=== PATIENT | male | born 1940 | race African-American/Black ===

== ENCOUNTER 2016-06-23 00:26 | Emergency (ER) | payer OTHER ==
[~2016-06-23] VITALS: Ht 195.6 cm; Wt 118.0 kg
[~2016-06-23 00:26] MED LIST: ADVA100A; ADVA100A INH; ALBU0.086 INH; ASPI81TA82 PO; BP MEDICATION PO; GLUCTAB PO; NITR0.4S SL; PRED5TAB PO; THEO300T31 PO
[2016-06-23 00:28] VITALS: BP 153/72; PULSE 86; RESP 16; TEMP 98.2; O2SAT 95
[2016-06-23 01:12] VITALS: BP 153/72; PULSE 86; RESP 16; TEMP 98.2; O2SAT 95
[2016-06-23 04:43] VITALS: BP 136/78; PULSE 62; RESP 16; O2SAT 95
[2016-06-23] MEDS ORDERED: SODIUM CHLORIDE 0.9% FLUSH 5 ML FLUSH IVF PRN (04:45)
[2016-06-23 05:03] LABS: AUTOMATED NEUTROPHIL # 3.5 TH/MM3 (1.8-7.7); BASOPHIL % 0.5 % (0.0-2.0); EOSINOPHIL # 0.3 TH/MM3 (0-0.4); EOSINOPHIL % 4.9 % (0.0-4.0); HEMO FLAGS DIFF FINAL; LYMPH % 31.7 % (9.0-44.0); LYMPHOCYTE # 2.1 TH/MM3 (1.0-4.8); MEAN CELL VOLUME 95.8 FL (80.0-100.0); MEAN CORPUSCULAR HEMOGLOBIN 33.1 PG (27.0-34.0); MEAN CORPUSCULAR HGB CONC 34.5 % (32.0-36.0); MONO % 9.7 % (0.0-8.0); NEUT % 53.2 % (16.0-70.0); PLATELET COUNT 223 TH/MM3 (150-450); RED CELL DISTRIBUTION WIDTH 13.6 % (11.6-17.2); WHITE BLOOD COUNT 6.6 TH/MM3 (4.0-11.0)
[2016-06-23 05:14] LABS: APTT (PATIENT) 25.3 SEC (24.3-30.1); PROTHROMBIN TIME - PATIENT 11.1 SEC (9.8-11.6)
[2016-06-23] MEDS ORDERED: PANTOPRAZOLE SODIUM 40 MG VIAL IV PUSH ONE (05:15)
[2016-06-23 05:19] LABS: ALT (GPT) 22 U/L (12-78); ANION GAP 8 MEQ/L (5-15); AST (GOT) 17 U/L (15-37); BICARBONATE 29.4 MEQ/L (21.0-32.0); BLOOD UREA NITROGEN 22 MG/DL (7-18); CHLORIDE 104 MEQ/L (98-107); GLOMERULAR FILTRATION RATE 105 ML/MIN (>89); POTASSIUM 4.4 MEQ/L (3.5-5.1); SODIUM (NA) 141 MEQ/L (136-145)
[2016-06-23 05:22] LABS: ALKALINE PHOSPHATASE 58 U/L (45-117); TOTAL BILIRUBIN ADULT 0.5 MG/DL (0.2-1.0)
[2016-06-23 05:50] LABS: BLOOD, URINE NEG (NEG); COMMENT (UR) CULT NOT INDICATED; CULTURE IF INDICATED CULT NOT INDICATED; GLUCOSE,URINE NEG (NEG); KETONE, URINE NEG (NEG); MUCUS URINE FEW /lpf (OCC); NITRITE,URINE NEG (NEG); PH, URINE 5.5 (5.0-8.5); URINE COLOR YELLOW (YELLW/STRAW)
--- NOTE | 2016-06-23 05:51 | RADRPT ---
EXAM DATE/TIME: 06/23/2016 05:06 [facility] COMPARISON: CHEST SINGLE AP, March 07, 2013, 2:28. INDICATIONS : Abdominal pain. MEDICAL HISTORY : None. SURGICAL HISTORY : None. ENCOUNTER: Initial ACUITY: 1 day PAIN SCORE: 2/10 LOCATION: Bilateral abdomen FINDINGS: A single view of the chest demonstrates the lungs to be symmetrically aerated without evidence of mas s, infiltrate or effusion. The cardiomediastinal contours are unremarkable. Osseous structures are intact. CONCLUSION: No acute disease. Jason Sanchez MD on June 23, 2016 at 5:50 Board Certified Radiologist. This report was verified electronically.
--- NOTE | 2016-06-23 05:55 | RADRPT ---
EXAM DATE/TIME: 06/23/2016 05:27 [facility] COMPARISON: CT BRAIN W/O CONTRAST, March 12, 2011, 12:32. INDICATIONS : Cephalgia. RADIATION DOSE: 69.15 CTDIvol (mGy) MEDICAL HISTORY : Hypertension. diabetes SURGICAL HISTORY : None. ENCOUNTER: Initial ACUITY: 1 day PAIN SCALE: 4/10 LOCATION: cranial TECHNIQUE: Multiple contiguous axial images were obtained of the head. Using automated exposure control and adj ustment of the mA and/or kV according to patient size, radiation dose was kept as low as reasonably a chievable to obtain optimal diagnostic quality images. FINDINGS: There is stable degree of atrophy greatest in the bilateral parietal regions. There is no evidence of acute infarct, intracranial hemorrhage, or mass. No fractures. CONCLUSION: No significant change has occurred. Jason Sanchez MD on June 23, 2016 at 5:53 Board Certified Radiologist. This report was verified electronically.
[2016-06-23] MEDS ORDERED: KETOROLAC TROMETHAMINE 30 MG/ML (IVP) VIAL IV PUSH ONE (06:00)
--- NOTE | 2016-06-23 06:17 | PD ---
HPI Chief Complaint: Abdominal Pain Time Seen by Provider: 04:29 Travel History International Travel<30 days: No Contact w/Intl Traveler<30days: No Traveled to known affect area: No History of Present Illness HPI The patient is a 76 year old male who presents to the [facility] emergency department with a history of Wednesday beginning to have a headache over his forehead that seems to be coming and going. He reports that is a pressure sensation. He denies having any nasal congestion or discharge. He denies having any sore throat. He denies having any cough or other congestion. The patient reports that he believes that he bumped his head on a cabinet prior to this beginning. The patient additionally reports that since 4:30 AM on Wednesday he has had a left upper quadrant abdominal pain that is been coming and going. He reports that this is an aching sensation. He reports that injury over lead did initially. The patient denies any recent fevers, neck pain, chest pain, shortness of breath, abdominal pain, vomiting, diarrhea, urinary symptoms, or neurologic symptoms. The patient reports that he last moved his bowels earlier today. He denies having any blood in his stool or black or tarry stools per PFSH Past Medical History Narrative Medical The patient's past medical history is significant for asthma, diabetes mellitus. Asthma: Yes Diabetes: Yes Patient Takes Glucophage: Yes (METFORMIN) Diminished Hearing: No Hypertension: Yes Tetanus Vaccination: Unknown Influenza Vaccination: No Past Surgical History Narrative Surgical The patient's past surgical history is significant for a left inguinal hernia repair. Abdominal Surgery: Yes (LT. INGUINAL HERNIOPLASTY) Social History Alcohol Use: Yes (once weekly) Tobacco Use: No Substance Use: No Allergies-Medications (Allergen,Severity, Reaction): Coded Allergies: No Known Allergies (Verified , 06/23/16) Reported Meds & Prescriptions Reported Meds & Active Scripts Active Lortab (Hydrocodone-Acetaminophen) 5-325 Mg Tab 1 Tab PO Q6H PRN Reported [Bp Medication] 1 Tab PO DAILY Alfred-Dur 300 Mg (Theophylline) 300 Mg Tabcr 150 Mg PO DIRECTED Proventil Ud 0.083% (2.5 Mg/3 Ml) (Albuterol Sulfate) 2.5 Mg/3 Ml Inha 2.5 Mg INH Q4 Prednisone 5 Mg Tab 5 Mg PO DAILY Nitrostat (Nitroglycerin) 0.4 Mg Subl 0.4 Mg SL PRN 1 TAB SL EVERY 5 MINS X 3 PRN CHEST PAIN Aspir-81 (Aspirin) 81 Mg Tab 81 Mg PO DAILY Advair Diskus 100/50 (Salmeterol Xinafoate/Fluticasone) 100 Mcg/50 Mcg Inhp 1 Puff INH DAILY Advair Diskus 100/50 (Salmeterol Xinafoate/Fluticasone) 100 Mcg/50 Mcg Inhp 0 UNKNOWN DOSE Glucophage XR 24 HR (Metformin HCl) 500 Mg Tab 500 Mg PO BID Review of Systems General / Constitutional: No: Fever Eyes: No: Visual changes HENT: Positive: Headaches (left forehead), No: Rhinorrhea, Congestion Cardiovascular: No: Chest Pain or Discomfort Respiratory: No: Cough, Shortness of Breath Gastrointestinal: Positive: Abdominal Pain, No: Nausea, Vomiting, Diarrhea, Changes in Bowel Habits, Indigestion, Loss of Appetite Genitourinary: No: Dysuria Musculoskeletal: No: Pain Skin: No Rash Neurologic: No: Weakness Psychiatric: No: Depression Endocrine: No: Polydipsia Hematologic/Lymphatic: No: Easy Bruising Physical Exam Narrative General: The patient is a well-developed well-nourished male in no acute distress. Head and Neck exam: Head is normocephalic atraumatic. The patient reports tenderness on palpation of the left side of his forehead. There is no contusion or swelling noted. There is no abrasion noted. No step-off or crepitus. No increase facial bone motility on palpation. Eyes: EOMI, pupils are equal round and reactive to light. Nose: Midline septum with pink mucous membranes Mouth: Dentition unremarkable. Moist mucus membranes. Posterior oropharynx is not erythematous. No tonsillar hypertrophy. Uvula midline. Airway patent. Neck: No palpable lymphadenopathy. No nuchal rigidity. No thyromegaly. Cardiovascular: Regular rate and rhythm without murmurs, gallops, or rubs. Lungs: Clear to auscultation bilaterally. No wheezes, rhonchi, or rales. Abdomen: Soft, without tenderness to palpation in all 4 quadrants of the abdomen. No guarding, rebound, or rigidity. Normal bowel sounds are audible. No tenderness on palpation of McBurney's point. Negative Hebert sign. Extremities: No clubbing, cyanosis, or edema. 2+ pulses in all 4 extremities. Back: No spinous process tenderness to palpation. No costovertebral angle tenderness to palpation. Neurologic Exam: Cranial nerves 2-12 were intact on exam. Strength is 5/5 in all 4 extremities. No sensory deficits noted. Skin Exam: No rash noted. Intact skin that is warm and dry. Data Data Last Documented VS Vital Signs Date Time Temp Pulse Resp B/P Pulse Ox O2 Delivery O2 Flow Rate FiO2 06/23/16 07:08 65 16 144/71 96 06/23/16 04:43 Room Air 06/23/16 01:12 98.2 Orders Complete Blood Count With Diff (06/23/16 04:39) Comprehensive Metabolic Panel (06/23/16 04:39) Lipase (06/23/16 04:39) Lactic Acid (06/23/16 04:39) Prothrombin Time / Inr (Pt) (06/23/16 04:39) Act Partial Throm Time (Ptt) (06/23/16 04:39) Urinalysis - C+S If Indicated (06/23/16 04:39) Iv Access Insert/Monitor (06/23/16 04:39) Ecg Monitoring (06/23/16 04:39) Oximetry (06/23/16 04:39) Sodium Chloride 0.9% Flush (Ns Flush) (06/23/16 04:45) Electrocardiogram (06/23/16 04:39) Chest, Single Ap (06/23/16 04:39) Ct Brain W/O Iv Contrast(Rout) (06/23/16 05:04) Theophylline (Aminophylline) (06/23/16 05:04) Pantoprazole Inj (Protonix Inj) (06/23/16 05:15) Ketorolac Inj (Toradol Inj) (06/23/16 06:00) Labs Laboratory Tests Test 06/23/16 06/23/16 06/23/16 04:45 04:50 05:20 White Blood Count 6.6 TH/MM3 Red Blood Count 4.70 MIL/MM3 Hemoglobin 15.5 GM/DL Hematocrit 45.0 % Mean Corpuscular Volume 95.8 FL Mean Corpuscular Hemoglobin 33.1 PG Mean Corpuscular Hemoglobin 34.5 % Concent Red Cell Distribution Width 13.6 % Platelet Count 223 TH/MM3 Mean Platelet Volume 7.6 FL Neutrophils (%) (Auto) 53.2 % Lymphocytes (%) (Auto) 31.7 % Monocytes (%) (Auto) 9.7 % Eosinophils (%) (Auto) 4.9 % Basophils (%) (Auto) 0.5 % Neutrophils # (Auto) 3.5 TH/MM3 Lymphocytes # (Auto) 2.1 TH/MM3 Monocytes # (Auto) 0.6 TH/MM3 Eosinophils # (Auto) 0.3 TH/MM3 Basophils # (Auto) 0.0 TH/MM3 CBC Comment DIFF FINAL Differential Comment Prothrombin Time 11.1 SEC Prothromb Time International 1.0 RATIO Ratio Activated Partial 25.3 SEC Thromboplast Time Sodium Level 141 MEQ/L Potassium Level 4.4 MEQ/L Chloride Level 104 MEQ/L Carbon Dioxide Level 29.4 MEQ/L Anion Gap 8 MEQ/L Blood Urea Nitrogen 22 MG/DL Creatinine 0.86 MG/DL Estimat Glomerular Filtration 105 ML/MIN Rate Random Glucose 108 MG/DL Calcium Level 8.7 MG/DL Total Bilirubin 0.5 MG/DL Aspartate Amino Transf 17 U/L (AST/SGOT) Alanine Aminotransferase 22 U/L (ALT/SGPT) Alkaline Phosphatase 58 U/L Total Protein 7.7 GM/DL Albumin 3.9 GM/DL Lipase 379 U/L Theophylline Level LESS THAN 2.0 MCG/ML Lactic Acid Level 1.2 mmol/L Urine Color YELLOW Urine Turbidity HAZY Urine pH 5.5 Urine Specific [place] 1.019 Urine Protein NEG mg/dL Urine Glucose (UA) NEG mg/dL Urine Ketones NEG mg/dL Urine Occult Blood NEG Urine Nitrite NEG Urine Bilirubin NEG Urine Urobilinogen LESS THAN 2.0 MG/DL Urine Leukocyte Esterase NEG Urine RBC 1 /hpf Urine WBC 1 /hpf Urine Mucus FEW /lpf Microscopic Urinalysis Comment CULT NOT INDICATED MDM Medical Decision Making Medical Screen Exam Complete: Yes Emergency Medical Condition: Yes Medical Record Reviewed: Yes Interpretation(s) Last Impressions Head CT 06/23/16 8518 Signed Impressions: Service Date/Time: Thursday, June 23, 2016 05:27 - CONCLUSION: No significant change has occurred. Jason Sanchez MD Chest X-Ray 06/23/16 [id number] Signed Impressions: Service Date/Time: [place], June 23, 2016 05:06 - CONCLUSION: No acute disease. Jason Sanchez MD Differential Diagnosis Intracranial hemorrhage, versus tension headache, versus headache related to hitting his head on the counter, versus viral syndrome Narrative Course During the course of the patients emergency department visit, the patients history, examination, and differential diagnosis were reviewed with the patient. The patient had IV access obtained and blood work sent for analysis. The patient was provided Protonix 40 mg IV times one. The patient reports that his abdominal pain has resolved, however he continues to have a headache. The patient reports that he did drive himself and for evaluation, therefore pain control was held until CT scan of the brain has been resulted an intracranial bleed was ruled out. The patients laboratory studies were reviewed and remarkable for white count 6.6, hemoglobin 15.5, platelets 223 with 9.7 monocytes, CMP is remarkable for a BUN of 22, glucose 108, lactic acid 1.2, lipase 379, PT PTT unremarkable, urinalysis unremarkable, theophylline level less than 2 Radiology studies were reviewed and remarkable for a chest x-ray that shows no acute abnormality. CT scan of the brain shows no significant for acute abnormality. The patient was given Toradol 15 mg IV 1 for pain. The patient was reexamined and reportedly was feeling improved. I suspect that the patient's headache is related to him hitting his head on a cabinet as he reports that he did do this prior to the onset of the headache. The patient is resting comfortably and feels better, is alert and in no distress. The patients results and examination findings were discussed with him. The repeat examination is unremarkable and benign. The history, exam, diagnostic testing, and current condition do not suggest any significant pathology to warrant further testing, continued ED treatment, admission, or surgical evaluation at this point. The vital signs have been stable. The patient does not have uncontrollable pain, intractable vomiting, or other significant symptoms. The patient's condition is stable and appropriate for discharge. The patient will pursue further outpatient evaluation with a primary care physician or other designated or consulting physician as indicated in the discharge instructions. The patient expressed understanding and was agreeable with this plan. Diagnosis Primary Impression: Headache Qualified Code: R51 - Acute nonintractable headache, unspecified headache type Additional Impression: Abdominal pain Qualified Code: R10.12 - Left upper quadrant pain Referrals: Primary Care Physician 2 days Patient Instructions: Abdominal Pain (ED), Acute Headache (ED), General Instructions Med/Other Pt SpecificInfo: Prescription(s) given Scripts Hydrocodone-Acetaminophen (Lortab)5-325 Mg Tab1 Tab PO Q6H PRN (PAIN) #7 TAB Ref 0 Prov:Luiza Mitchell MD 06/23/16 Disposition: 01 DISCHARGE HOME Condition: Stable Luiza Mitchell MD Jun 23, 2016 06:17
[2016-06-23] MEDS ORDERED: HYDR-3533 PO (06:45)
[2016-06-23 07:08] VITALS: BP 144/71
--- NOTE | 2016-06-23 17:59 | EKG ---
Date Performed: 06/23/2016 Time Performed: 04:48:49 PTAGE: 76 years EKG: Sinus rhythm WITH SINUS ARRHYTHMIA Since previous tracing, no significant change noted NORMAL ECG PREVIOUS TRACING : 03/07/2013 02.19 DOCTOR: Matthias Valente Interpretating Date/Time 06/23/2016 17:59:27
== END 2016-06-23 07:25 | disposition home or self-care (01) ==
LOC: NEPC 00:26
DX: R51 Headache (principal); R10.12 Left upper quadrant pain; I10 Essential (primary) hypertension; E11.9 Type 2 diabetes mellitus without complications; Z79.84 Long term (current) use of oral hypoglycemic drugs
CPT/HCPCS: 70450; 71010; 80053; 80198; 81001; 83605; 83690; 85025; 85610; 85730; 93005; 96374; 96375; 99284; C9113; J1885